=== PATIENT | male | born 1970 | race Caucasian/White ===

== ENCOUNTER 2018-07-09 15:03 | Emergency (ER) | payer MEDICAID ==
[~2018-07-09] VITALS: Ht 162.6 cm; Wt 74.0 kg
[2018-07-09 15:06] VITALS: BP 164/88; PULSE 109; RESP 18; Ht 162.6 cm; Wt 74.0 kg
[2018-07-09] MEDS ORDERED: KETOROLAC 30 MG INJ IM STA (15:38)
[2018-07-09] MEDS ORDERED: IBUP-1542 PO (15:41)
[2018-07-09] MEDS ORDERED: PROM118S PO (15:41)
--- NOTE | 2018-07-09 15:44 | ERD ---
ER Documentation Chief Complaint Chief Complaint FEVER & COUGH X 2 DAYS HPI 48-year-old male presents with fever and cough for last 2 days. No vomiting abdominal pain, urinary complaints, shortness of breath. ROS All systems reviewed and are negative except as per history of present illness. Medications Home Meds Active Scripts Promethazine/Phenyleph/Codeine (Yluoepkjndbj-HB-Dmgfnvi Syrup) 118 Ml Syrup, 118 ML PO QID for 5 Days 1-2 teaspoon 3 times a day for cough. 4 ounces. Prov:DANIELA FREEMAN MD 07/09/18 Ibuprofen* (Motrin*) 600 Mg Tab, 600 MG PO Q6, #15 TAB Prov:DANIELA FREEMAN MD 07/09/18 Allergies Allergies: Coded Allergies: No Known Allergy (Unverified , 08/02/11) PMhx/Soc Hx Miscellaneous Medical Probl: Yes (DENIES MEDICAL PROBLEMS) Hx Alcohol Use: No Hx Substance Use: No Hx Tobacco Use: No FmHx Family History: No diabetes, No coronary disease, No other Physical Exam Vitals Vital Signs Date Temp Pulse Resp B/P (MAP) Pulse Ox O2 O2 Flow FiO2 Time Delivery Rate 07/09/18 100.4 16:19 07/09/18 100.1 15:54 07/09/18 100.1 109 18 164/88 97 15:06 (113) Physical Exam Const: No acute distress Head: Atraumatic Eyes: Normal Conjunctiva ENT: Normal External Ears, Nose and Mouth. TMs and oropharynx normal. Neck: Full range of motion. No meningismus. Resp: Clear to auscultation bilaterally. Coarse dry cough without rales, wheezing or retractions. Cardio: Regular rate and rhythm, no murmurs Abd: Soft, non tender, non distended. Normal bowel sounds Skin: No petechiae or rashes Back: No midline or flank tenderness Ext: No cyanosis, or edema Neur: Awake and alert Psych: Normal Mood and Affect Results 24 hrs Current Medications Medications Dose Sig/Emeterio Start Time Status Last (Trade) Ordered Route PRN Stop Time Admin Dose Reason Admin Ketorolac 30 mg ONCE STAT 07/09/18 DC 07/09/18 Tromethamine IM 15:38 15:54 (Toradol) 07/09/18 15:39 650 mg ONCE ONCE 07/09/18 DC 07/09/18 Acetaminophen PO 16:00 15:54 (Tylenol 07/09/18 16:01 Tab) Procedures/MDM Patient presents with fever, URI, body aches, headache for the last 2 days. Findings are suspicion for influenza without signs of hypoxemia, respiratory distress, signs of pneumonia or abdominal pain or ill appearance. He was given Toradol 30 mg IM, and Tylenol. Patient will be treated with promethazine with codeine, ibuprofen, instructions for fluids, rest, primary care follow-up and return precautions. The patient was stable with no new complaints during the ER course. Clinically, there is no current evidence to suggest meningitis, sepsis, acute abdomen, pneumonia, stroke, acute coronary syndrome, pulmonary embolism, aortic dissection or any other emergent condition appearing to require further evaluation or hospitalization. Patient counseled regarding my diagnostic impression and care plan. Prior to discharge all questions answered. Pt agrees with treatment plan and understands strict return precautions. Pt is instructed to follow up with primary care provider within 24-48 hours. Precautionary instructions provided including instructions to return to the ER if not i mproving or for any worsening or changing symptoms or concerns. Departure Diagnosis: Primary Impression: URI, acute Additional Impression: Fever Fever type: unspecified Qualified Codes: R50.9 - Fever, unspecified Condition: Stable Patient Instructions: Fever Control (Adult), Influenza (Adult), Uri, Viral, No Abx (Adult) Additional Instructions: Examines normal hoy. Cheque otro vez con vera doctor primario en el proximo soler or regresa para mas o nueva simptomas. DANIELA FREEMAN MD Jul 09, 2018 15:44
[2018-07-09] MEDS ORDERED: ACETAMINOPHEN 325 MG TAB PO ONE (16:00)
== END 2018-07-09 16:20 | disposition home or self-care (01) ==
LOC: FTE 15:03
DX: J06.9 Acute upper respiratory infection, unspecified (principal)
CPT/HCPCS: 96372; J1885; Z7502; Z7610

== ENCOUNTER 2018-07-10 20:22 | Emergency (ER) | payer MEDICAID ==
[~2018-07-10] VITALS: Ht 160 cm; Wt 72.3 kg
[~2018-07-10 20:22] MED LIST: IBUP-1542 PO; PROM118S PO
[2018-07-10 20:29] VITALS: Ht 160 cm; Wt 72.3 kg
[2018-07-11] MEDS ORDERED: KETOROLAC 30 MG INJ IV STA (01:09)
--- NOTE | 2018-07-11 01:23 | ERD ---
ER Documentation Chief Complaint Chief Complaint FEVER WITH HEADACHE, BACK PAIN, COUGH; RECHECK HPI This is a 48-year-old male who presents here in the emergency department for a recheck of his symptoms. Stated that he was here yesterday and was discharged with a final diagnosis of acute URI. Patient is complaining of uncontrolled fever at home even after the Motrin. Also complains of chest pain and mid upper back pain that radiates to bilateral arms. Pain was described as sharp and pressure-like with a rate of 7/10. Stated that the pain exist even without coughing or without moving. Denies headache, head injury, loss of consciousness, dizziness, neck pain, neck stiffness, throat pain, difficulty swallowing, difficulty breathing lying flat, shoulder pain, abdominal pain, nausea, vomiting, constipation, diarrhea, urinary symptoms, loss of bowel and bladder control, trauma, injury, falls, difficulty walking due to pain, numbness or tingling sensation, calf pain, recent travel, recent major surgery in the last 3 weeks, calf pain, recent long travel, recent exposure to any illness, recent antibiotic use in the last 3 months, chills, seizures. Past medical history: Denies. Surgical history: Denies. Social: Denies smoking, use of alcoholic beverages, use of illegal drugs. ROS All systems reviewed and are negative except as per history of present illness. Medications Home Meds Active Scripts Cephalexin* (Keflex*) 500 Mg Capsule, 500 MG PO TID for 7 Days, CAP Prov:PASILABANPRITI F 07/11/18 Benzonatate* (Tessalon Perle*) 100 Mg Capsule, 100 MG PO Q8H PRN for COUGH, #15 CAP Prov:PASILABANPRITI F 07/11/18 Ibuprofen* (Motrin*) 800 Mg Tab, 800 MG PO Q6H PRN for PAIN AND OR ELEVATED TEMP, #30 TAB Prov:PASILABAN,MATTAR F 07/11/18 Oseltamivir Phosphate* (Tamiflu*) 75 Mg Capsule, 75 MG PO BID for 5 Days, CAP Prov:PASILABAN,KLAR F 07/11/18 Promethazine/Phenyleph/Codeine (Avpbyoxsxzhm-YD-Pvvvlho Syrup) 118 Ml Syrup, 118 ML PO QID for 5 Days 1-2 teaspoon 3 times a day for cough. 4 ounces. Prov:TEEHEE,DANIELA N. MD 07/09/18 Ibuprofen* (Motrin*) 600 Mg Tab, 600 MG PO Q6, #15 TAB Prov:DANIELA FREEMAN MD 07/09/18 Allergies Allergies: Coded Allergies: No Known Allergy (Unverified , 08/02/11) PMhx/Soc History of Surgery: No Anesthesia Reaction: No Hx Neurological Disorder: No Hx Respiratory Disorders: No Hx Cardiac Disorders: No Hx Psychiatric Problems: No Hx Miscellaneous Medical Probl: No Hx Alcohol Use: No Hx Substance Use: No Hx Tobacco Use: No Smoking Status: Never smoker Physical Exam Vitals Vital Signs Date Temp Pulse Resp B/P (MAP) Pulse Ox O2 O2 Flow FiO2 Time Delivery Rate 07/11/18 98.5 83 18 129/77 96 Room Air 05:55 (94) 07/11/18 98.7 80 20 130/82 Room Air 01:54 (98) 07/10/18 101.1 23:15 07/10/18 102.1 117 18 161/93 98 20:29 (115) Physical Exam Const: No acute distress Head: Atraumatic Eyes: Normal Conjunctiva ENT: Normal External Ears, Nose and Mouth. Neck: Full range of motion. No meningismus. No nuchal rigidity. No signs of meningeal irritation. Resp: Clear to auscultation bilaterally. Cardio: Regular rate and rhythm, no murmurs Abd: Soft, non tender, non distended. Normal bowel sounds. Skin: No petechiae or rashes Back: No midline or flank tenderness Ext: No cyanosis, or edema Neur: Awake and alert. Romberg test negative. No neurological deficits. Psych: Normal Mood and Affect Result Diagram: 07/11/1811607/11/18116 Results 24 hrs Laboratory Tests Test 07/11/18 01:17 07/11/18 01:49 07/11/18 04:27 White Blood Count 8.0 10^3/ul Red Blood Count 4.48 10^6/ul Hemoglobin 13.3 g/dl Hematocrit 38.6 % Mean Corpuscular Volume 86.2 fl Mean Corpuscular Hemoglobin 29.7 pg Mean Corpuscular 34.5 g/dl Hemoglobin Concent Red Cell Distribution Width 13.0 % Platelet Count 157 10^3/UL Mean Platelet Volume 12.0 fl Immature Granulocytes % 0.200 % Neutrophils % 64.0 % Lymphocytes % 24.5 % Monocytes % 11.0 % Eosinophils % 0.1 % Basophils % 0.2 % Nucleated Red Blood Cells % 0.0 /100WBC Immature Granulocytes # 0.020 10^3/ul Neutrophils # 5.1 10^3/ul Lymphocytes # 2.0 10^3/ul Monocytes # 0.9 10^3/ul Eosinophils # 0.0 10^3/ul Basophils # 0.0 10^3/ul Nucleated Red Blood Cells # 0.0 10^3/ul Prothrombin Time 14.0 Sec Prothrombin Time Ratio 1.1 INR International 1.07 Normalized Ratio Activated Partial Thromboplast 33.3 Sec Time Sodium Level 138 mmol/L Potassium Level 3.6 mmol/L Chloride Level 103 mmol/L Carbon Dioxide Level 27 mmol/L Anion Gap 8 Blood Urea Nitrogen 14 mg/dl Creatinine 1.15 mg/dl Est Glomerular Filtrat > 60 mL/min Rate mL/min Glucose Level 216 mg/dl Lactic Acid Level 0.9 mmol/L Calcium Level 9.1 mg/dl Total Bilirubin 0.4 mg/dl Direct Bilirubin 0.00 mg/dl Indirect Bilirubin 0.4 mg/dl Aspartate Amino 29 IU/L Transf (AST/SGOT) Alanine 26 IU/L Aminotransferase (ALT/SGPT) Alkaline Phosphatase 104 IU/L Troponin I < 0.012 ng/ml < 0.012 ng/ml Total Protein 7.9 g/dl Albumin 4.2 g/dl Globulin 3.70 g/dl Albumin/Globulin Ratio 1.13 Urine Color YELLOW Urine Clarity CLOUDY Urine pH 5.0 Urine Specific [place] 1.014 Urine Ketones NEGATIVE mg/dL Urine Nitrite NEGATIVE mg/dL Urine Bilirubin NEGATIVE mg/dL Urine Urobilinogen NEGATIVE mg/dL Urine Leukocyte Esterase 3+ Yan/ul Urine Microscopic RBC 8 /HPF Urine Microscopic WBC > 182 /HPF Urine Squamous Epithelial Cells FEW /HPF Urine Bacteria FEW /HPF Urine Hemoglobin 2+ mg/dL Urine Glucose 3+ mg/dL Urine Total Protein 1+ mg/dl Current Medications Medications Dose Sig/Emeterio Start Time Status Last (Trade) Ordered Route PRN Stop Time Admin Dose Reason Admin Ketorolac 30 mg ONCE STAT 07/11/18 DC 07/11/18 Tromethamine IV 01:09 01:20 (Toradol) 07/11/18 01:13 Aspirin 325 mg ONCE ONCE 07/11/18 DC 07/11/18 (Aspirin) PO 01:30 01:19 07/11/18 01:31 Morphine 4 mg ONCE STAT 07/11/18 DC Sulfate IV 01:34 (morphine) 07/11/18 01:35 Oseltamivir 75 mg ONCE ONCE 07/11/18 DC 07/11/18 Phosphate PO 02:30 02:21 (Tamiflu) 07/11/18 02:31 Sodium 500 ml @ Q1H ONCE 07/11/18 DC 07/11/18 Chloride 500 mls/hr IV 02:30 02:24 07/11/18 03:29 Procedures/MDM This case discussed with my supervising physician, Dr. Yaya Toledo who recommends troponin 3 hours after, EKG prior to discharge. Diagnostic tests: EKG: No STEMI. Read by supervising physician, Dr. Yaya Toledo Second EKG at 4:15 AM: Normal sinus rhythm. No STEMI. Read by supervising physician. Influenza a and B: Positive for influenza A. Negative for influenza B. Chest x-ray: No evidence of active cardiopulmonary disease. Treatment: Saline lock. Toradol IV. Aspirin p.o. Morphine IV. Re-evaluation: No episode of emesis here in the emergency department. Temperature responded to antipyretic medication. Denies headache, chest pain, abdominal pain. Lung sounds are clear to auscultation. No accessory muscle use on breathing. No neurological deficits. Differential diagnosis I have low suspicion for sepsis, meningitis, acute myocardial infarction, acute coronary syndrome, pneumonia, bronchospasm. Final diagnosis: Influenza A. UTI. Prescription: Tamiflu. Motrin. Keflex. Follow-up with PCP in the next 24-48 hours. Come back here in the emergency department for any new symptoms or any worsening symptoms. All questions and concerns were answered. Patient and family members verbalized understanding and agreed with plan of care. Hemodynamically stable on discharge. Departure Diagnosis: Primary Impression: Influenza A Additional Impression: UTI (urinary tract infection) Condition: Stable Additional Instructions: Follow-up with PCP in the next 24-48 hours. Come back here in the emergency department for any new symptoms or any worsening symptoms. PRITI MOON Jul 11, 2018 01:23
[2018-07-11] MEDS ORDERED: ASPIRIN 325 MG TAB PO ONE (01:30)
[2018-07-11] MEDS ORDERED: morphine 4 MG/ML VIAL IV STA (01:34)
[2018-07-11] MEDS ORDERED: OSELTAMIVIR 75 MG CAP PO ONE (02:30)
[2018-07-11] MEDS ORDERED: SOD CHLORIDE 0.9% 500 ML IV ONE (02:30)
[2018-07-11] MEDS ORDERED: BENZ-6 PO (05:21)
[2018-07-11] MEDS ORDERED: OSEL75CA23 PO (05:21)
[2018-07-11] MEDS ORDERED: IBUP800T48 PO (05:21)
[2018-07-11] MEDS ORDERED: CEPH-443 PO (05:36)
[2018-07-11 05:55] VITALS: BP 129/77; PULSE 83; RESP 18
== END 2018-07-11 05:56 | disposition home or self-care (01) ==
LOC: FTE 20:22
DX: J10.1 Influenza due to other identified influenza virus with other respiratory manifestations (principal); N39.0 Urinary tract infection, site not specified; R07.9 Chest pain, unspecified
CPT/HCPCS: 36415; 71046; 80053; 81001; 83605; 84484; 85025; 85610; 85730; 87040; 87400; 93005; 96374; J1885; J7040; Z7502; Z7610; J2270